=== PATIENT | male | born 1990 | race Caucasian/White ===

== ENCOUNTER 2018-03-17 21:42 | Emergency (ER) | payer MEDICAID, OTHER ==
[~2018-03-17] VITALS: Ht 185.4 cm; Wt 84.0 kg
[2018-03-17 21:52] VITALS: BP 132/70; PULSE 83; RESP 16; TEMP 97.4; O2SAT 98
--- NOTE | 2018-03-17 23:03 | PD ---
HPI Chief Complaint: Foreign Body Time Seen by Provider: 22:54 Travel History International Travel<30 days: No Contact w/Intl Traveler<30days: No Traveled to known affect area: No History of Present Illness HPI 27-year-old male complains right leg pain. Patient suffered a puncture wound to right lower leg yesterday from a piece of metal at work . Patient states that the piece of metal still in the right leg. Patient was seen at [facility] in [place]. X-ray was done of the right leg which confirmed the presence of foreign body. Patient was given TD booster. Patient was advised to take Tylenol for pain. Patient states that has increase in pain which started at the right leg and radiates the rest of the body. Patient denies any other injury. Patient states that the pain is sharp pain burning pain. On a scale from 1-10 the pain is a 10. PFSH Past Medical History Gastrointestinal Disorders: Yes (Chron's, ulcers) Tetanus Vaccination: < 5 Years Influenza Vaccination: No Past Surgical History Surgical History: No Previous Surgery Social History Alcohol Use: Yes (rarely) Tobacco Use: Yes (1 PPD) Substance Use: Yes (marijuana) Allergies-Medications (Allergen,Severity, Reaction): Coded Allergies: No Known Drug Allergies (Verified Allergy, Unknown, 03/17/18) Review of Systems General / Constitutional: No: Fever Eyes: No: Visual changes HENT: No: Headaches Cardiovascular: No: Chest Pain or Discomfort Respiratory: No: Shortness of Breath Gastrointestinal: No: Abdominal Pain Genitourinary: No: Dysuria Musculoskeletal: Positive: Pain Skin: No Rash Neurologic: No: Weakness Psychiatric: No: Depression Endocrine: No: Polydipsia Hematologic/Lymphatic: No: Easy Bruising Physical Exam Narrative GENERAL: Well-nourished, well-developed patient. SKIN: Focused skin assessment warm/dry. HEAD: Normocephalic. EYES: No scleral icterus. No injection or drainage. NECK: Supple, trachea midline. No JVD or lymphadenopathy. CARDIOVASCULAR: Regular rate and rhythm without murmurs, gallops, or rubs. RESPIRATORY: Breath sounds equal bilaterally. No accessory muscle use. GASTROINTESTINAL: Abdomen soft, non-tender, nondistended. MUSCULOSKELETAL: No cyanosis, or edema. BACK: Nontender without obvious deformity. No CVA tenderness. Patient has a small puncture wound on the medial aspect the right lower leg on the calf area with ecchymosis noted. Mild soft tissue swelling tenderness noted. No active bleeding. Sensory motor function distally intact. Data Data Last Documented VS Vital Signs Date Time Temp Pulse Resp B/P (MAP) Pulse Ox O2 Delivery O2 Flow Rate FiO2 03/17/18 21:52 97.4 83 16 132/70 (90) 98 Room Air Orders Orders Tibia/Fibula (Ap/Lat) (03/17/18 22:57) MDM Medical Decision Making Medical Screen Exam Complete: Yes Emergency Medical Condition: Yes Differential Diagnosis Differential diagnosis including foreign body, hematoma, cellulitis, abscess. Narrative Course 27-year-old male with foreign body puncture wound right leg. Diagnosis Primary Impression: Foreign body of right lower leg Qualified Codes: S80.851A - Superficial foreign body, right lower leg, initial encounter Patient Instructions: General Instructions Additional Instructions: Take medication as needed for pain. Follow-up with personal physician or orthopedist as needed. Return if increasing redness swelling. Med/Other Pt SpecificInfo: Prescription(s) given Scripts Tramadol (Ultram) 50 Mg Tab 50 MG PO Q6H Y for PAIN, #10 TAB 0 Refills Prov: Michele Ventura MD 03/17/18 Meloxicam (Mobic) 15 Mg Tab 15 MG PO DAILY for Pain, #20 TAB 0 Refills Prov: Michele Ventura MD 03/17/18 Disposition: 01 DISCHARGE HOME Condition: Stable Michele Ventura MD March 17, 2018 23:03
[2018-03-17] MEDS ORDERED: MOBI15TA PO (23:33)
[2018-03-17] MEDS ORDERED: TRAM50 PO (23:33)
--- NOTE | 2018-03-17 23:52 | RADRPT ---
EXAM DATE/TIME: 03/17/2018 23:02 [facility] COMPARISON: No previous studies available for comparison. INDICATIONS : Evaluate for foreign body. Hit with metal at work. MEDICAL HISTORY : None. SURGICAL HISTORY : None. ENCOUNTER: Initial ACUITY: 2 days PAIN SCORE: 9/10 LOCATION: Right tibia/fibula FINDINGS: There is a 4 mm metallic density focus in the posterior medial aspect of the proximal medial gastrocn emius muscle about 2 cm deep to the skin surface. There is no evidence of underlying bony injury. CONCLUSION: Tiny metallic density foreign object in the medial gastroc muscle Lewis Justin MD on March 17, 2018 at 23:47 Board Certified Radiologist. This report was verified electronically.
== END 2018-03-18 00:40 | disposition home or self-care (01) ==
LOC: NEPE 21:42
DX: S80.851D Superficial foreign body, right lower leg, subsequent encounter (principal); K50.90 Crohn's disease, unspecified, without complications; F17.200 Nicotine dependence, unspecified, uncomplicated; W45.8XXD Other foreign body or object entering through skin, subsequent encounter
CPT/HCPCS: 73590; 99283